=== PATIENT | female | born 1990 | race Caucasian/White ===

== ENCOUNTER → 2016-04-09 | Outpatient (CLI) | payer BC ==
[~2016-04-09] MED LIST: ANTIBIOTIC FOR ACNE; BCPILLS PO; LRT5 PO
== END | disposition home or self-care (01) ==
LOC: C.PAPS 09:18
PROVIDERS: ATTEND Obstetrics & Gynecology
DX: Z01.419 Encounter for gynecological examination (general) (routine) without abnormal findings (principal)

== ENCOUNTER 2016-09-08 19:26 | Emergency (ER) | payer OTHER, BC ==
[~2016-09-08] VITALS: Ht 170.2 cm; Wt 96.6 kg
[~2016-09-08 19:26] MED LIST changes: -BCPILLS PO
[2016-09-08 19:28] VITALS: TEMP 36.8; Ht 170.2 cm; Wt 96.6 kg
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
[2016-09-08] MEDS ORDERED: BCPILLS PO (20:17)
[2016-09-08] MEDS ORDERED: ACETAMINOPHEN 500 MG TAB PO STA (20:21)
[2016-09-08] MEDS ORDERED: IBUPROFEN 600 MG TAB PO STA (20:21)
[2016-09-08] MEDS ORDERED: NORCO 5/325MG HOME PACK PO ONE (20:30)
[2016-09-08 20:41] VITALS: BP 124/72; PULSE 72; O2SAT 98
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
== END 2016-09-08 20:42 | disposition home or self-care (01) ==
LOC: C.EDB 19:27 → C.EDD 20:42
DX: S69.91XA Unspecified injury of right wrist, hand and finger(s), initial encounter (principal); V89.2XXA Person injured in unspecified motor-vehicle accident, traffic, initial encounter; Y92.488 Other paved roadways as the place of occurrence of the external cause; Z79.3 Long term (current) use of hormonal contraceptives

== ENCOUNTER 2017-01-17 10:13 | Emergency (ER) | payer BC, OTHER ==
[~2017-01-17] VITALS: Ht 170.2 cm; Wt 97.6 kg
[~2017-01-17 10:13] MED LIST changes: -ANTIBIOTIC FOR ACNE; +BCPILLS PO; -LRT5 PO
[2017-01-17 10:25] VITALS: TEMP 36.9; Ht 170.2 cm; Wt 97.6 kg
[2017-01-17] MEDS ORDERED: PROPARACAINE HCL 0.5% OP SOLN 15 ML BTL ONE (10:37)
[2017-01-17] MEDS ORDERED: HYDR-5688 PO (10:53)
[2017-01-17] MEDS ORDERED: MOXIFLOXACIN HCL 0.5% OP SOLN 3 ML BTL OPR SCH (11:00)
[2017-01-17 11:38] VITALS: BP 117/85; PULSE 73; O2SAT 97
--- NOTE | 2017-01-17 16:48 | EMERGENCY ROOM VISIT NOTE ---
ED Visit Note First contact with patient: 10:32 CHIEF COMPLAINT: Right eye pain HISTORY OF PRESENT ILLNESS: This 26-year-old white female patient presents to ER with her , for evaluation of right eye pain that developed Wednesday. She states she removed her contacts and accidentally scratched her right eye. She has had corneal abrasions before and states it felt similar at that point. She did not seek medical treatment. She was using an eyedrop for pain control. She was wearing her glasses. The eye was doing well until yesterday. Her pain began increasing. This morning she awoke with severe pain, purulent discharge, and difficulty seeing. She is photosensitive. No involvement of the other eye. There is a blurring of vision. No headache, nausea, or vomiting. Pain is 9/10. REVIEW OF SYSTEMS: Head: No headache, injury or neck pain. Neck: No pain, stiffness, or swelling. Neurological: No headache, new changes in mental status, vertigo, focal weakness, numbness. PMH: Supplemental sheet was reviewed and signed. Previous surgeries: [place] tooth extraction Medical history: Benign Current medications: None Allergies: NKDA SOCIAL HISTORY: Patient lives at home. . No tobacco use, occasional EtOH use. Family history: Significant for diabetes, heart disease, hypertension, and cancer. Parents are living. PHYSICAL EXAM: Vital Signs: Afebrile. Reviewed and filed in patient's chart. GENERAL: Well-developed, well-nourished, young white female, in obvious discomfort. No acute distress. She is sitting on the bed. Alert and oriented. Skin: Warm and dry with good turgor. No rashes or lesions. No ecchymosis or erythema. The patient is not diaphoretic. No abrasions. No evidence of periorbital cellulitis. Mild edema of the right upper and lower eyelid. HEENT : Normocephalic, atraumatic. The pupils are round, equal, and react to light. EOMs are full. There is discharge of clear tears and purulent mucus from the right eye which is also injected. This was removed with a swab. Slit lamp examination was performed after Alcaine anesthesia and staining with fluorescein. There is no foreign body visible under the eyelid after lid eversion. No foreign body was seen embedded in the cornea. Corneal ulceration is seen directly over the pupil. It is approximately 3-4 mm in diameter. There is a thick mucous coating present over the ulceration. I cannot remove it with a Dacron swab. The cornea was clear and no hyphema was seen. Anterior chamber is without sediment. Fluorescein uptake was observed at central portion of the cornea in line with the pupil. DIAGNOSIS: Right eye corneal ulceration DISCHARGE INSTRUCTIONS AND TREATMENT: Patient was educated regarding today's findings. Conservative care measures were discussed. I did speak with Dr. Vega regarding this patient. He would like to see her in the office tomorrow. He recommended one drop of Vigamox in the eye every hour while awake , and every 2 hours overnight. Tylenol and Motrin every 6 hours as needed for mild discomfort. Take [place] every 6 hours if needed for more severe pain. Driving precautions were reviewed. Sunglasses and dark rooms will improve comfort. She may continue using warm moist compresses to the eye to remove the purulent discharge. Current/Historical Medications Scheduled Control Pills ( Control Pills), 1 TAB PO DAILY Scheduled PRN Hydrocodone/Acetaminophen 5MG/325MG ([place] 5MG/325MG), 1 TABLET PO Q6 PRN for Pain Allergies Coded Allergies: No Known Allergies (Unverified , 01/17/17) Vital Signs Date Time Temp Pulse Resp B/P (MAP) Pulse Ox O2 Delivery O2 Flow Rate FiO2 01/17/17 11:38 73 16 117/85 97 01/17/17 10:25 36.9 82 18 134/85 97 Room Air Medications Administered Medications (Trade) Dose Ordered Sig/Albin Route Start Time Stop Time Status Last Admin Dose Admin Moxifloxacin HCl (Vigamox Oph Soln) 1 drops Q1H OPR 01/17/17 11:00 01/17/17 12:08 DC 01/17/17 11:38 1 DROPS Departure Information Impression Primary Impression: Central corneal ulcer, right eye Dispostion Home / Self-Care Condition GOOD Prescriptions Hydrocodone/Acetaminophen 5MG/325MG ([place] 5MG/325MG) Tab 1 TABLET PO Q6 Y for Pain, #12 TAB For Initial Treatment Prov: Zuhair Delgado,P.A. 01/17/17 Referrals Sha Garsia M.D. Forms WORK / SCHOOL INSTRUCTIONS, HOME CARE DOCUMENTATION FORM, SPECIAL NARCOTICS INSTRUCTIONS, MOTRIN USE, TYLENOL USE, IMPORTANT VISIT INFORMATION Patient Instructions My [facility] Additional Instructions Apply Vigamox 1 drop in the eye every hour while awake, and every [address] Vega tomorrow morning for follow-up tomorrow Sunglasses and dark rooms will improve your comfort Tylenol and Motrin every 6 hours as needed for mild pain Substitute [place] 5 mg every 6 hours as needed for more severe pain Do not wear any contact lenses
== END 2017-01-17 11:40 | disposition home or self-care (01) ==
LOC: C.EDB 10:15 → C.EDA 11:40
DX: S05.01XA Injury of conjunctiva and corneal abrasion without foreign body, right eye, initial encounter (principal); H16.011 Central corneal ulcer, right eye; X58.XXXA Exposure to other specified factors, initial encounter

== ENCOUNTER 2018-12-15 09:57 | Inpatient (IN) ==
[2018-12-15] MEDS ORDERED: OXYTOCIN 30 UNITS/500 ML BAG IV PRN ×2 (10:44→13:55)
--- NOTE | 2018-12-15 11:05 | History & Physical Report ---
Date of Service December 15, 2018 Assessment & Plan (1) : In review of patient's blood pressures, given severity of BP and comorbid headache, patient meets criteria for gHTN. I am also concerned about preeclampsia, and have ordered labs to rule this in/out. Will plan to check cervix, if cervical ripening is needed, will insert arambula bulb with pitocin. Patient is agreeable to this plan. History of Present Illness Chief Complaint: headache, elevated BP Primary Care Provider: NO PCP 28yo @ 38 0/7 presents as directed from office with elevated blood pressures and headache. She has had a headache and "sprinkles" in her vision for the past 2 days and increased nasal/sinus stuffiness. She has not taken any medications to help this yet. + movement, no vaginal bleeding or leaking of fluid. is complicated by elevated BMI. Allergies Allergy/AdvReac Type Severity Reaction Status Date / Time No Known Drug Allergies Allergy Verified 12/15/18 09:20 Home Medications Home Medications Medication Instructions Recorded Confirmed Type PNV cmb#95-ferrous fumarate-FA 1 tab PO DAILY 06/06/18 12/15/18 History [] Patient History Social History Preferred Language: Luxembourgish Communication Ability: Effective Beliefs That Will Affect Care: None marital status: Current Living Situation: Spouse current occupational status: employed Other Information That Helps Us Care for You: No Feels Safe at Home: Yes Safety Concerns: Feels Safe At This Time Smoking Status: Never smoker Hx Alcohol Use: No Hx Substance Use: No Review of Systems All systems reviewed & are unremarkable except as noted in HPI & below Physical Exam Constitutional: WD/WN, vitals as above Respiratory: normal respiratory effort, lungs clear to auscultation no respiratory distress Cardiovascular: Rate/Rhythm: regular rate and regular rhythm Gastrointestinal (Abdomen): Inspection/Auscultation: abdomen normal to inspection Percussion/Palpation: abdomen soft; abdomen nontender Gravid. No s/s chorio or abruption. Skin: no rashes, warm and dry Psychiatric: A+Ox3, euthymic affect Results & Data Vital Signs (Past 12 Hours) Vital Signs Temp Pulse Resp BP 12/15/18 10:53 91 H 133/80 12/15/18 10:52 94 H 137/84 12/15/18 10:37 103 H 184/88 H 12/15/18 10:23 36.8 C 95 H 20 172/80 H 12/15/18 10:22 95 H 172/80 H 12/15/18 10:03 36.8 C 84 20 134/86 Monitoring External Monitor Cat 1 Tocodynamometer Rare
[2018-12-15 11:12] LABS: Hematocrit (blood only) 33.8 % (37-47); Hemoglobin 10.5 g/dL (12.0-16.0); Mean Corpuscular Hemoglobin 24.8 pg (25-34); Mean Corpuscular Volume 79.7 fL (80-100); Platelet Count 258 K/uL (130-400); RDW Coefficient of Variation 14.4 % (11.5-14.5); RDW Standard Deviation 41.9 fL (36.4-46.3); Red Blood Count 4.24 M/uL (4.2-5.4); White Blood Count 7.28 K/uL (4.8-10.8)
[2018-12-15 11:25] LABS: Albumin Level 2.4 gm/dl (3.4-5.0); BUN Creatinine Ratio 12.9 (10-20); Calcium 9.2 mg/dl (8.5-10.1); Creatinine Clr Calc Pharmacy 159.5 ml/min; Est GFR (African American) 132.1; Potassium 3.9 mmol/L (3.5-5.1)
[2018-12-15 11:28] LABS: Albumin Globulin Ratio 0.6 (0.9-2); Bilirubin,Total 0.1 mg/dl (0.2-1); Total Protein 6.4 gm/dl (6.4-8.2)
[2018-12-15 11:53] LABS: Mean Corpuscular Hgb Conc 31.1 g/dL (32-36)
--- NOTE | 2018-12-15 11:58 | Obstetrical Progress Note ---
Date of Service December 15, 2018 Subjective Cervix closed/thick/high. Fernandez bulb inserted for cervical ripening. There was a gush of blood upon insertion approx 50cc. FHT cat 1 following insertion. Will continue to monitor bleeding/FHT closely. The bleeding did stop after the initial gush. Will plan to start pitocin as long as FHT/bleeding stable. Results & Data Vital Signs (Past 12 Hours) Vital Signs Temp Pulse Resp BP 12/15/18 11:21 90 125/71 12/15/18 11:07 89 128/70 12/15/18 10:53 91 H 133/80 12/15/18 10:52 94 H 137/84 12/15/18 10:37 103 H 184/88 H 12/15/18 10:23 36.8 C 95 H 20 172/80 H 12/15/18 10:22 95 H 172/80 H 12/15/18 10:03 36.8 C 84 20 134/86 PG Care Time/CCT Total # of Minutes Spent Total Time Spent with Patient: Total time spent is greater than 50% in coordination of care (as documented) at patient's floor/unit and/or counseling p atient:
[2018-12-15] MEDS: LACTATED RINGER'S 1,000 ML IV PRN ×3 (12:02→19:49)
--- NOTE | 2018-12-15 13:54 | Obstetrical Progress Note ---
Date of Service December 15, 2018 Subjective FHT Cat 1, [place] rare No further bleeding from vagina. A small amount of blood through arambula catheter. I discussed with patient - will start pitocin, monitor closely. Results & Data Vital Signs (Past 12 Hours) Vital Signs Temp Pulse Resp BP 12/15/18 12:07 70 20 138/74 12/15/18 11:21 90 125/71 12/15/18 11:07 89 128/70 12/15/18 10:53 91 H 133/80 12/15/18 10:52 94 H 137/84 12/15/18 10:37 103 H 184/88 H 12/15/18 10:23 36.8 C 95 H 20 172/80 H 12/15/18 10:22 95 H 172/80 H 12/15/18 10:03 36.8 C 84 20 134/86 PG Care Time/CCT Total # of Minutes Spent Total Time Spent with Patient: Total time spent is greater than 50% in coordination of care (as documented) at patient's floor/unit and/or counseling patient:
[2018-12-15] MEDS ORDERED: fentaNYL citrate 100 MCG/2 ML VIAL ONE (17:50)
[2018-12-15] MEDS ORDERED: ePHEDrine sulfate 50 MG/ML AMP ONE (17:50)
[2018-12-15] MEDS ORDERED: BUPIVACAINE 0.25% 30 ML VIAL ONE (17:51)
[2018-12-15] MEDS ORDERED: fentaNYL 2MCG/ML ROPIV 1.25MG/ML 100 ML BAG EPI ONE (17:51)
--- NOTE | 2018-12-15 18:41 | Anesthesiology Consultation ---
Date of Service December 15, 2018 Assessment & Plan (1) Encounter for pre-operative examination: Chart Review Chart Review: Patient NOT seen in Pre Admission Testing and Acceptable Risk for Labor Epidural Consults Requested none ASA ASA2 Proposed Anesthesia Anesthesia Type: Labor Epidural Risk / Benefits Reviewed With: PT / POA / Parent / Guardian, Accepts Plan and Informed Consent Obtained History Height/Weight Height: 5 ft 7 in Weight: 124.738 kg Allergies Allergy/AdvReac Type Severity Reaction Status Date / Time No Known Drug Allergies Allergy Verified 12/15/18 09:20 Medications Home Medications Medication Instructions Recorded Confirmed Last Taken PNV cmb#95-ferrous fumarate-FA 1 tab PO DAILY 06/06/18 12/15/18 12/15/18 08:30 [] Active Medications Generic Name Dose Route Start Last Admin Trade Name Freq PRN Reason Stop Dose Admin Lactated Ringer's 1,000 mls @ 125 mls/hr 12/15/18 10:44 12/15/18 18:40 Lr IV 12/17/18 10:43 125 mls/hr .Q8H PRN Infusion L&D Protocol Protocol Oxytocin 30 units in 500 mls @ 7 mls/hr 12/15/18 13:55 12/15/18 18:12 Pitocin IV 12/17/18 13:54 0.42 units/hr .Q24H PRN 7 mls/hr Labor Induction/Augmentation Titration Protocol 0.42 UNITS/HR NPO Date Last Intake of Fluids: 12/15/18 Time Last Intake of Fluids: 17:30 Date Last Intake of Solids: 12/15/18 Time Last Intake of Solids: 09:00 Past Medical History Medical History History of joint pain History of varicella No significant past medical history Skin tag Exercise / Class Metabolic Activity II 4-5 Yardwork/Stairs/Walk up hill Past Family History Family History Father Diabetes Grandmother (Paternal) Diabetes Grandfather (Maternal) Hypertension Grandmother (Maternal) Hypertension Past Surgical History Surgical History No significant past surgical history S/P wisdom tooth extraction Past Anesthesia History No Hx of Anesthesia Complications and No Family Hx of Anesthesia Complications History of PONV No Hx of PONV and No Hx of Motion Sickness Social History Smoking Status: Never smoker Hx Alcohol Use: No Hx Substance Use: No Physical Exam Vital Signs Last Vital Signs Temp 36.8 C 12/15/18 18:16 Pulse 78 12/15/18 18:39 Resp 20 12/15/18 18:16 BP 112/58 L 12/15/18 18:39 Pulse Ox 100 12/15/18 18:35 ENMT Mouth: no dentition abnormality Thyromental Distance: > or= 3.5 Finger Breadths Mallampati Class: II Neck normal visual inspection Respiratory normal respiratory effort Auscultation: lungs clear to auscultation bilaterally Cardiovascular Rate/Rhythm: regular rate and regular rhythm Psychiatric Orientation: alert Testing Laboratory Results 12/15/18 10:53 12/15/18 10:52
[2018-12-15] MEDS ORDERED: NALOXONE HCL 0.4 MG/1 ML VIAL/CARP IV PRN (19:09)
[2018-12-15] MEDS ORDERED: DiphenhydrAMINE HCL 50 MG/ML VIAL IV PRN (19:09)
[2018-12-15] MEDS ORDERED: PROMETHAZINE HCL 6.25 MG in SODIUM CHLORIDE 0.9% 50 ML IV PRN (19:09)
[2018-12-15] MEDS ORDERED: ePHEDrine sulfate 50 MG/ML AMP IV PRN (19:09)
[2018-12-15] MEDS ORDERED: NALBUPHINE HCL INJ 10 MG/ML AMP IV PRN (19:09)
[2018-12-15] MEDS ORDERED: NALOXONE HCL 1 MG in SODIUM CHLORIDE 0.9% 1000ML 1,000 ML IV PRN (19:09)
--- NOTE | 2018-12-15 20:14 | Obstetrical Progress Note ---
Date of Service December 15, 2018 Subjective Comfortable with epidural. FHT Cat 1, [place] Q 2 Arambula bulb pulled, cervix 5/80/-2 AROM performed, clear fluid. There was a small dark clot of blood, presumably from the previous bleeding at the time of insertion of arambula bulb. No further bleeding. Results & Data Vital Signs (Past 12 Hours) Vital Signs Temp Pulse Resp BP Pulse Ox 12/15/18 20:10 89 100 12/15/18 20:05 95 H 100 12/15/18 20:02 88 112/58 L 12/15/18 20:00 79 99 12/15/18 19:55 79 99 12/15/18 19:50 80 99 12/15/18 19:46 85 109/59 L 12/15/18 19:45 73 99 12/15/18 19:40 79 100 12/15/18 19:35 82 100 12/15/18 19:31 71 115/65 12/15/18 19:30 36.6 C 72 20 100 12/15/18 19:25 86 100 12/15/18 19:20 77 100 12/15/18 19:17 79 110/55 L 12/15/18 19:15 78 100 12/15/18 19:10 78 100 12/15/18 19:05 71 100 12/15/18 19:02 71 108/51 L 12/15/18 19:00 91 H 100 12/15/18 18:55 75 100 12/15/18 18:50 84 100 12/15/18 18:45 70 113/60 100 12/15/18 18:43 62 113/55 L 12/15/18 18:41 69 113/56 L 12/15/18 18:40 76 100 12/15/18 18:39 78 112/58 L 12/15/18 18:37 73 108/58 L 12/15/18 18:35 72 134/60 100 12/15/18 18:32 78 135/64 12/15/18 18:30 72 100 12/15/18 18:27 75 148/70 H 12/15/18 18:25 78 95 12/15/18 18:16 36.8 C 20 12/15/18 17:25 78 149/86 H 12/15/18 17:22 36.5 C 22 12/15/18 16:27 65 20 135/79 12/15/18 15:16 77 135/66 12/15/18 15:00 36.6 C 65 20 122/73 12/15/18 14:45 80 16 128/76 12/15/18 14:30 75 126/73 12/15/18 14:15 65 124/61 12/15/18 14:06 69 124/61 12/15/18 12:07 70 20 138/74 12/15/18 11:21 90 125/71 12/15/18 11:07 89 128/70 12/15/18 10:53 91 H 133/80 12/15/18 10:52 94 H 137/84 12/15/18 10:37 103 H 184/88 H 12/15/18 10:23 36.8 C 95 H 20 172/80 H 12/15/18 10:22 95 H 172/80 H 12/15/18 10:03 36.8 C 84 20 134/86 PG Care Time/CCT Total # of Minutes Spent Total Time Spent with Patient: Total time spent is greater than 50% in coordination of care (as documented) at patient's floor/unit and/or counseling patient:
[2018-12-15] MEDS: ONDANSETRON INJ 2 MG/ML 2 ML VIAL IV PRN (20:15)
[2018-12-16] MEDS: fentaNYL 2MCG/ML ROPIV 1.25MG/ML 100 ML BAG EPI PRN ×2 (01:32→06:04)
[2018-12-16] MEDS: LACTATED RINGER'S 1,000 ML IV PRN (03:58)
[2018-12-16] MEDS: ONDANSETRON INJ 2 MG/ML 2 ML VIAL IV PRN (03:58)
--- NOTE | 2018-12-16 06:23 | Obstetrical Progress Note ---
Date of Service December 16, 2018 Subjective Increased pressure. Cervix with very tiny anterior lip, thin. Patient feels urge to push. head +1 station. I asked her to push while I retracted anterior lip of cervix, this allowed it to push behind head. Will plan to continue pushing. Anticipate . Results & Data Vital Signs (Past 12 Hours) Vital Signs Temp Pulse Resp BP Pulse Ox 12/16/18 06:21 107 H 99 12/16/18 06:17 75 132/73 12/16/18 06:16 81 98 12/16/18 06:11 88 99 12/16/18 06:06 89 100 12/16/18 06:03 61 122/59 L 12/16/18 06:01 91 H 100 12/16/18 06:00 36.9 C 20 12/16/18 05:56 75 99 12/16/18 05:51 99 H 98 12/16/18 05:47 76 120/58 L 12/16/18 05:46 75 100 12/16/18 05:41 66 97 12/16/18 05:36 83 100 12/16/18 05:31 93 H 120/65 97 12/16/18 05:26 66 97 12/16/18 05:20 92 H 98 12/16/18 05:19 98 H 90 12/16/18 05:17 72 112/62 12/16/18 05:15 93 H 100 12/16/18 05:10 71 98 12/16/18 05:05 99 H 99 12/16/18 05:01 76 120/58 L 12/16/18 05:00 94 H 98 12/16/18 04:55 73 100 12/16/18 04:50 77 100 12/16/18 04:46 93 H 122/74 12/16/18 04:45 87 100 12/16/18 04:40 78 100 12/16/18 04:35 71 98 12/16/18 04:32 68 116/65 12/16/18 04:30 68 99 12/16/18 04:25 70 99 12/16/18 04:20 66 100 12/16/18 04:17 58 L 131/60 12/16/18 04:15 63 98 12/16/18 04:10 73 98 12/16/18 04:08 94 H 90 12/16/18 04:05 90 99 12/16/18 04:02 77 108/66 12/16/18 04:00 83 18 100 12/16/18 03:55 80 100 12/16/18 03:50 95 H 99 12/16/18 03:48 122 H 121/85 12/16/18 03:45 74 100 12/16/18 03:40 69 98 12/16/18 03:35 67 99 12/16/18 03:31 71 120/68 12/16/18 03:30 36.7 C 64 20 98 12/16/18 03:25 66 97 12/16/18 03:20 66 98 12/16/18 03:16 67 121/66 12/16/18 03:15 67 100 12/16/18 03:10 66 98 12/16/18 03:05 69 98 12/16/18 03:02 64 127/71 12/16/18 03:00 67 98 12/16/18 02:55 76 99 12/16/18 02:50 72 99 12/16/18 02:46 68 124/68 12/16/18 02:45 73 98 12/16/18 02:40 72 99 12/16/18 02:35 67 98 12/16/18 02:32 72 123/67 12/16/18 02:30 72 99 12/16/18 02:25 74 99 12/16/18 02:20 79 99 12/16/18 02:17 78 118/56 L 12/16/18 02:15 72 99 12/16/18 02:10 77 100 12/16/18 02:05 92 H 100 12/16/18 02:02 78 114/58 L 12/16/18 02:00 72 18 99 12/16/18 01:55 69 98 12/16/18 01:50 83 99 12/16/18 01:47 66 108/55 L 12/16/18 01:45 75 98 12/16/18 01:40 73 100 12/16/18 01:35 80 100 12/16/18 01:32 73 117/60 12/16/18 01:30 36.4 C L 76 18 100 12/16/18 01:25 80 100 12/16/18 01:20 73 100 12/16/18 01:17 77 106/65 12/16/18 01:15 72 100 12/16/18 01:10 83 99 12/16/18 01:05 77 100 12/16/18 01:01 70 109/59 L 12/16/18 01:00 74 20 99 12/16/18 00:55 83 99 12/16/18 00:50 84 100 12/16/18 00:48 71 118/72 12/16/18 00:45 75 99 12/16/18 00:40 72 98 12/16/18 00:35 94 H 98 12/16/18 00:32 78 125/59 L 12/16/18 00:30 36.7 C 71 18 98 12/16/18 00:25 71 99 12/16/18 00:20 70 98 12/16/18 00:17 77 115/59 L 12/16/18 00:15 89 98 12/16/18 00:10 67 98 12/16/18 00:05 67 98 12/16/18 00:01 71 119/61 12/16/18 00:00 71 98 12/15/18 23:55 73 97 12/15/18 23:50 67 97 12/15/18 23:46 70 116/59 L 12/15/18 23:45 66 97 12/15/18 23:40 67 97 12/15/18 23:35 69 97 12/15/18 23:33 67 113/58 L 12/15/18 23:30 67 18 97 12/15/18 23:25 62 97 12/15/18 23:20 63 97 12/15/18 23:17 64 119/63 12/15/18 23:15 67 98 12/15/18 23:10 67 98 12/15/18 23:05 67 99 12/15/18 23:01 76 131/61 12/15/18 23:00 71 18 98 12/15/18 22:55 77 98 12/15/18 22:50 70 99 12/15/18 22:47 73 132/61 12/15/18 22:45 74 98 12/15/18 22:40 74 99 12/15/18 22:35 71 100 12/15/18 22:30 36.4 C L 79 20 100 12/15/18 22:25 76 99 12/15/18 22:20 68 98 12/15/18 22:17 72 108/56 L 12/15/18 22:15 72 97 12/15/18 22:10 67 98 12/15/18 22:05 71 98 12/15/18 22:02 65 111/57 L 12/15/18 22:00 70 97 12/15/18 21:55 70 99 12/15/18 21:50 72 99 12/15/18 21:47 65 111/55 L 12/15/18 21:45 84 99 12/15/18 21:40 63 99 12/15/18 21:35 61 98 12/15/18 21:31 70 109/55 L 12/15/18 21:30 73 99 12/15/18 21:25 74 98 12/15/18 21:20 66 98 12/15/18 21:16 71 113/58 L 12/15/18 21:15 72 99 12/15/18 21:10 77 98 12/15/18 21:05 78 98 12/15/18 21:03 75 113/60 12/15/18 21:00 78 18 100 12/15/18 20:55 79 99 12/15/18 20:50 90 99 12/15/18 20:48 72 113/59 L 12/15/18 20:45 71 98 12/15/18 20:40 80 99 12/15/18 20:35 76 99 12/15/18 20:33 83 110/56 L 12/15/18 20:30 81 98 12/15/18 20:25 80 99 12/15/18 20:20 113 H 99 12/15/18 20:16 97 H 118/65 12/15/18 20:15 36.7 C 83 20 100 12/15/18 20:10 89 100 12/15/18 20:05 95 H 100 12/15/18 20:02 88 112/58 L 12/15/18 20:00 79 99 12/15/18 19:55 79 99 12/15/18 19:50 80 99 12/15/18 19:46 85 109/59 L 12/15/18 19:45 73 99 12/15/18 19:40 79 100 12/15/18 19:35 82 100 12/15/18 19:31 71 115/65 12/15/18 19:30 36.6 C 72 20 100 12/15/18 19:25 86 100 12/15/18 19:20 77 100 12/15/18 19:17 79 110/55 L 12/15/18 19:15 78 100 12/15/18 19:10 78 100 12/15/18 19:05 71 100 12/15/18 19:02 71 108/51 L 12/15/18 19:00 91 H 100 12/15/18 18:55 75 100 12/15/18 18:50 84 100 12/15/18 18:45 70 113/60 100 12/15/18 18:43 62 113/55 L 12/15/18 18:41 69 113/56 L 12/15/18 18:40 76 100 12/15/18 18:39 78 112/58 L 12/15/18 18:37 73 108/58 L 12/15/18 18:35 72 134/60 100 12/15/18 18:32 78 135/64 12/15/18 18:30 72 100 12/15/18 18:27 75 148/70 H 12/15/18 18:25 78 95 PG Care Time/CCT Total # of Minutes Spent Total Time Spent with Patient: Total time spent is greater than 50% in coordination of care (as documented) at patient's floor/unit and/or counseling patient:
[2018-12-16] MEDS ORDERED: ZOLPIDEM TARTRATE 5 MG TAB PO PRN (07:22)
[2018-12-16] MEDS ORDERED: SUPERCREAM 0.870% 15 GM JAR EXT PRN (07:23)
[2018-12-16] MEDS ORDERED: BISACODYL 10 MG SUPP PR PRN (07:23)
[2018-12-16] MEDS ORDERED: OXYCODONE/ACETAMINOPHEN 5mg/325mg TAB PO PRN (07:23)
[2018-12-16] MEDS ORDERED: BENZOCAINE 20% AER SPR 82.5 GM CAN EXT PRN (07:23)
[2018-12-16] MEDS ORDERED: OXYTOCIN 30 UNITS/500 ML BAG IV PRN (07:23)
[2018-12-16] MEDS ORDERED: HYDROCORTISONE ACETATE 25 MG SUPP PR PRN (07:23)
[2018-12-16] MEDS ORDERED: DIPHTHERIA/TETANUS/PERTUSSIS 0.5 ML SYR/VIAL IM ONE (07:23)
--- NOTE | 2018-12-16 07:25 | Delivery Summary ---
Vaginal Delivery Summary Date of Service December 16, 2018 Vaginal Delivery Summary Vaginal Delivery Summary: Pre-delivery diagnoses: 28yo @ 38 1/7, gHTN, IOL Post-delivery diagnoses: same, mild shoulder dystocia, 2nd degree perineal laceration Procedure: spontaneous vaginal delivery with shoulder dystocia relieved by McRobert's Maneuver and delivery of anterior arm Surgeon: Virginia Laureano DO Complications: none Findings: Viable male . Apgars: 3/8. Weight pending, please see nursery records Estimated blood loss: 300ml Description of delivery: The patient progressed to complete with epidural anesthesia. She then began to push. She spontaneously vaginally delivered a viable male from the cephalic presentation. The head delivered in JOSEPH position. There was approx 45 seconds between head and body delivery. The mother's legs were placed in McRobert's position, and with one push, the baby's anterior shoulder delivered. The posterior shoulder did not deliver immediately, the anterior arm was partially out already, and therefore was delivered in its entirety. The posterior shoulder then delivered spontaneously. There was a tight nuchal cord, this was unable to be reduced, and the baby was delivered through. The baby was placed on mother's abdomen and the cord was doubly clamped and cut. The baby was immediately handed over to pediatrics team for resuscitation. A segment was retained for cord gases. Cord blood was obtain ed. The placenta was delivered spontaneously intact with a 3-vessel cord. The uterus and vagina were swept of clots and debris. IV pitocin was given. The uterus became firm. The cervix, vagina, and perineum were inspected and a 2nd degree perineal laceration was noted, repaired in standard fashion with 3-0 Vicryl. Excellent hemostasis was observed. The mother and baby are recovering in stable and good condition in the room. Sponge, needle and instrument counts were correct x 2. Virginia Laureano DO FACG
[2018-12-16 07:27] LABS: CO2 Cord Arterial Blood 64 mmHg (39.1-73.5); HCO3 Cord Arterial Blood 25 mmol/L (19.7-28.5)
[2018-12-16 07:29] LABS: Oxygen Sat Cord Arterial Blood < 60.0 % (<60)
[2018-12-16] MEDS ORDERED: LACTATED RINGER'S 1,000 ML IV SCH (07:30)
[2018-12-16 07:34] LABS: Base Excess Cord Venous Blood -4.7 mEq/L (-7.7-1.9); Cord Venous Blood HCO3 21 mmol/L (18.4-26.8); Cord Venous Blood PCO2 41 mmHg (30.4-57.2); Cord Venous Blood PO2 28 mmHg (14.1-43.3)
[2018-12-16 07:35] LABS: Cord Venous Blood pH 7.32 (7.20-7.44)
--- NOTE | 2018-12-16 07:50 | Anesthesia Procedure Note ---
Date of Service December 16, 2018 Anesthesia Post Epidural Note Vital Signs Vital Signs: Temp Pulse Resp BP Pulse Ox 36.9 C 71 20 118/61 89 L 12/16/18 06:00 12/16/18 07:37 12/16/18 07:37 12/16/18 07:37 12/16/18 07:02 Pain Intensity Lower Abdomen: Pain Intensity: 0 Notes Mental Status: alert / awake / arousable and participated in evaluation Patient Amnestic to Procedure: No Nausea / Vomiting: adequately controlled Pain: adequately controlled Airway Patency, RR, SpO2: stable & adequate BP & HR: stable & adequate Hydration State: stable & adequate Neuraxial Anesthesia: was administered and sensory block is resolving Anesthetic Complications: no major complications apparent and Pt Satisfied with anesthetic care Epidural: Removed without complications and With tip intact
[2018-12-16] MEDS: ACETAMINOPHEN 325 MG TAB PO PRN ×3 (10:33→23:14)
[2018-12-16] MEDS: PRENATAL VITAMIN 1 TAB PO SCH (10:33)
[2018-12-16] MEDS: DOCUSATE SODIUM 100 MG CAP PO SCH ×2 (10:33→20:43)
[2018-12-16] MEDS: IBUPROFEN 600 MG TAB PO PRN (15:07)
[2018-12-17] MEDS: IBUPROFEN 600 MG TAB PO PRN (03:57)
--- NOTE | 2018-12-17 06:21 | Obstetrical Progress Note ---
Date of Service <Lloyd Martínez DO - Last Filed: 12/17/18 06:21> December 17, 2018 Assessment & Plan <Lloyd Martínez DO - Last Filed: 12/17/18 06:21> (1) : -PPD#1 -Vitals reviewed, WNL (Tmax 36.7) - GBS -, Blood Type O+ - Clinically stable. - Feels well today. Eating well, voiding well, ambulating well. - Pain well controlled. - Routine post- care - After discharge will have [address] Laureano. Day #:: 1 Subjective <Lloyd CovingtonnDO - Last Filed: 12/17/18 06:21> Ambulation: ambulating normally Voiding: no voiding problems Passing Gas:: Yes Diet Tolerance:: regular diet Lochia:: Small Feeding Type:: breast feeding Current Pain Level(1-10): 3 (improves with analgesics) Patient is a 28 PPD#1. Patient states that she is feeling well today and that her pain is well controlled. She does note some nipple discomfort with feedings. She has no other complaints at this time. Constitutional: no fever and no chills Respiratory: no cough, no dyspnea and no wheezing Cardiovascular: + edema; no chest pain, no dyspnea, no palpitations and no calf pain Breast: + breast pain (nipple discomfort with feedings) Gastrointestinal: no abdominal pain, no nausea and no vomiting Genitourinary (female): no dysuria and no difficulty urinating Neurologic: no headache(s) Physical Exam <Lloyd Covingtonfarzad DO [place] Last Filed: 12/17/18 06:21> Constitutional WD/WN, vitals as above Respiratory normal respiratory effort, lungs clear to auscultation Cardiovascular Rate/Rhythm: regular rate and regular rhythm Heart Sounds: normal S1 and normal S2; no click, no gallop, no murmur and no cardiac rub Extremities: + edema (+2); no calf tenderness Gastrointestinal (Abdomen) Inspection/Auscultation: abdomen normal to inspection and normal bowel sounds Percussion/Palpation: + abdomen tender (TTP lower quadrants, appropriate) and abdomen soft Genitourinary OB Exam Abdomen: + fundal height Fundus: + firm and + relation to umbilicus (2cm below); not tender and not boggy Results & Data <Lloyd Martínez DO - Last Filed: 12/17/18 06:21> Vital Signs (Past 12 Hours) Vital Signs Temp Pulse Resp BP 12/17/18 03:25 36.7 C 85 18 114/79 12/16/18 23:15 36.6 C 85 18 111/75 12/16/18 19:35 36.5 C 77 18 103/67 Medications Administered Current Inpatient Medications Acetaminophen (Tylenol) 650 mg PO Q6H PRN PRN Reason: Pain/MUÑOZ/Fever Stop: 01/15/19 07:22 Last Admin: 12/16/18 23:14 Dose: 650 mg Documented by: Benzocaine (Dermoplast Pain Relieving [place]) 1 appln EXT PRN PRN PRN Reason: Perineal Discomfort Stop: 01/15/19 07:22 Bisacodyl (Dulcolax) 5 mg PO 1999 [facility] Stop: 12/17/18 20:01 Bisacodyl (Dulcolax) 10 mg WA DAILY PRN PRN Reason: No BM on 2nd post- day Stop: 01/15/19 07:22 Cocaine HCl (Supercream 0.870%) 1 gm EXT BID PRN PRN Reason: Hemorrhoidal Inflammation Stop: 12/30/18 07:22 Docusate Sodium (Colace) 100 mg PO DAILY@08, [facility] Stop: 01/15/19 07:59 Last Admin: 12/16/18 20:43 Dose: 100 mg Documented by: Hydrocortisone (Anusol Hc) 25 mg WA BID PRN PRN Reason: Hemorrhoidal Inflammation Stop: 01/15/19 07:22 Oxytocin (Pitocin) 30 units in 500 mls @ 333.333 mls/hr IV .Q1H30M PRN; Protocol PRN Reason: Bleeding Control Stop: 01/14/19 10:43 Last Admin: 12/16/18 07:24 Dose: 20 units/hr, 333.3 mls/hr Documented by: Lactated Ringer's (Lr) 1,000 mls @ 125 mls/hr IV .Q8H PRN; Protocol PRN Reason: L&D Protocol Stop: 12/17/18 10:43 Last Admin: 12/16/18 03:58 Dose: 125 mls/hr Documented by: Oxytocin (Pitocin) 30 units in 500 mls @ 10 mls/hr IV .Q24H PRN; Protocol PRN Reason: Labor Induction/Augmentation Stop: 12/17/18 13:54 Last Titration: 12/16/18 04:45 Dose: 0.6 units/hr, 10 mls/hr Documented by: Oxytocin (Pitocin) 30 units in 500 mls @ 333.333 mls/hr IV .Q1H30M PRN; Protocol PRN Reason: Bleeding Control Stop: 01/15/19 07:22 Lactated Ringer's (Lr) 1,000 mls @ 125 mls/hr IV .Q8H OPAL Stop: 01/15/19 07:29 Ibuprofen (Motrin) 600 mg PO Q4H PRN PRN Reason: Pain/MUÑOZ/Cramping/Fever Stop: 01/15/19 07:20 Last Admin: 12/17/18 03:57 Dose: 600 mg Documented by: Oxycodone/Acetaminophen (Percocet 5mg/325mg) 1 tab PO Q4H PRN PRN Reason: Pain not relieved by... Stop: 12/30/18 07:22 Prenat Multivit/[place]/Iron/Folic Ac ( Vitamin) 1 tab PO DAILY@08 OPAL Stop: 01/15/19 07:59 Last Admin: 12/16/18 10:33 Dose: 1 tab Documented by: Zolpidem Tartrate (Ambien) 5 mg PO HS PRN PRN Reason: Sleep Stop: 01/15/19 07:21 <Laura Malloy MD, FACOG - Last Filed: 12/17/18 08:00> Co-Signing Physician Notes Resident Physician Supervision Note: I interviewed and examined the patient. Discussed with Dr. Martínez and agree with findings and plan as documented in the note. Any exceptions or clarifications are listed here: Doing well. Pressures are good. NO s/s of pet. Continued routine care. Documented By: Laura Malloy MD, FACOG Resident Activity Tracking <Lloyd Martínez DO - Last Filed: 12/17/18 06:21> Resident Involvement: Resident Care Provided Care Provided: OB Delivery
[2018-12-17 06:51] LABS: Hematocrit (blood only) 29.2 % (37-47); Hemoglobin 9.2 g/dL (12.0-16.0); Mean Corpuscular Hemoglobin 25.3 pg (25-34); Mean Corpuscular Hgb Conc 31.5 g/dL (32-36); Mean Corpuscular Volume 80.2 fL (80-100); Mean Platelet Volume 9.7 fL (7.4-10.4); Platelet Count 212 K/uL (130-400); RDW Coefficient of Variation 14.8 % (11.5-14.5); RDW Standard Deviation 43.4 fL (36.4-46.3); Red Blood Count 3.64 M/uL (4.2-5.4); White Blood Count 11.27 K/uL (4.8-10.8)
[2018-12-17] MEDS: DOCUSATE SODIUM 100 MG CAP PO SCH ×2 (08:39→20:52)
[2018-12-17] MEDS: ACETAMINOPHEN 325 MG TAB PO PRN ×3 (08:40→22:18)
[2018-12-17] MEDS: PRENATAL VITAMIN 1 TAB PO SCH (08:40)
[2018-12-17] MEDS ORDERED: BISACODYL 5 MG TABEC PO SCH (20:00)
[2018-12-18 01:13] VITALS: O2SAT 99
[2018-12-18 06:38] LABS: Hematocrit (blood only) 29.8 % (37-47); Hemoglobin 9.5 g/dL (12.0-16.0)
[2018-12-18] MEDS: DOCUSATE SODIUM 100 MG CAP PO SCH (07:34)
[2018-12-18] MEDS: PRENATAL VITAMIN 1 TAB PO SCH (07:34)
[2018-12-18 08:14] VITALS: BP 121/80; TEMP 97.7
--- NOTE | 2018-12-18 09:27 | Obstetrical Progress Note ---
Date of Service December 18, 2018 Assessment & Plan (1) care and examination: 28yo G1 s/p . DOing well. BP wnl. complicated by gHTN. - Stable for discharge. - 1 week BP check Subjective Ambulation: ambulating normally Voiding: no voiding problems Diet Tolerance:: regular diet Lochia:: Moderate Physical Exam Constitutional WD/WN, vitals as above Gastrointestinal (Abdomen) Inspection/Auscultation: abdomen normal to inspection; abdomen not distended Psychiatric A+Ox3, euthymic affect Genitourinary no vaginal lesions, no adnexal mass OB Exam Abdomen: + fundal height Fundus: + firm and + relation to umbilicus (below); not tender Results & Data Vital Signs (Past 12 Hours) Vital Signs Temp Pulse Pulse Resp BP Pulse Ox 12/18/18 07:40 36.5 C 82 16 121/80 12/17/18 23:55 36.7 C 81 18 109/68 99
[2018-12-18 10:01] VITALS: PULSE 81
== END 2018-12-18 10:51 | disposition home or self-care (01) | DRG 807 ==
LOC: OPB 09:57 → 4S1 10:00 → 4S2 12-16 12:05

== ENCOUNTER 2021-10-30 18:52 | Inpatient (IN) ==
[2021-10-30] MEDS ORDERED: OXYTOCIN 30 UNITS/500 ML BAG IV PRN ×2 (19:48)
[2021-10-30] MEDS ORDERED: LIDOCAINE 1% LOCAL 20 ML VIAL INFIL PRN (19:48)
[2021-10-30] MEDS: LACTATED RINGER'S 1,000 ML IV PRN ×2 (19:55→23:52)
--- NOTE | 2021-10-30 19:59 | Labor Progress Brief Note ---
Date of Service October 30, 2021 Subjective Patient arrives to L&D for Arambula Bulb placement. She c/o contractions that are irregular and she is unsure if they are labor contractions or painful movements because they aren't timeable. No LOF or VB, good FM. During placement ROM occurred for clear fluid. Patient to be admitted and will begin IOL now. 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 Assessment & Plan (1) Supervision of normal intrauterine in multigravida: Plan: Patient for induction of labor as scheduled, will begin pitocin now as rupture of membranes already. Epidural on request. GBS neg. Physical Exam Constitutional: WD/WN, vitals as above Eyes: PERRL, conjunctivae normal, anicteric sclerae ENMT: external ear and nose normal, oropharynx normal Neck: supple Respiratory: normal respiratory effort and able to speak in complete sentences; no respiratory distress Cardiovascular: Rate/Rhythm: regular rate and regular rhythm Extremities: + pedal edema Gastrointestinal (Abdomen): Gravid / AGA, nontender Musculoskeletal: no cyanosis or clubbing, extremities motor strength 5/5 Skin: no rashes, warm and dry Psychiatric: A+Ox3, euthymic affect Genitourinary: Speculum/Bimanual Exam: no vaginal lesions, no vaginal bleeding and uterus nontender OB Exam Abdomen: + vertex and + estimated weight (7-8lb) Manual OB Exam: + cervical dilation 1 cm, + cervical effacement 50%, + station -2 and + amniotic fluid (Clear fluid immediately upon introduction of arambula tip into cervix) clear OB Exam Monitor Tracing: + external FHT monitor used, + external uterine monitor used and + category I Scant clear fluid appeared in arambula as soon as the tip was introduced to the external os. Amount was small, few drips from the catheter, not flow. No "pop" appreciated and tip had not yet been advanced through the internal os. With further advancement of tip off of the stylet and into the uterine cavity, light pink tinge began to appear in fluid. Tested the fluid and was nitrazine positive so catheter removed from the uterus and patient informed of evident ROM. Lymphatic: no cervical or axillary lymphadenopathy Results & Data ([facility]) Vital Signs (Past 12 Hours) Vital Signs Temp Pulse Resp BP 10/30/21 19:04 99.3 F 18 10/30/21 19:31 87 10/30/21 19:31 135/63 10/30/21 19:00 83 144/67 H Coding Level of Care Code None Diagnoses Supervision of normal intrauterine in multigravida Z34.80
[2021-10-30 20:23] LABS: Hematocrit (blood only) 33.2 % (34.1-44.9); Hemoglobin 10.6 g/dl (12.0-16.0); Mean Corpuscular Hemoglobin 25.4 pg (25.0-34.0); Mean Corpuscular Hgb Conc 31.9 g/dL (32.0-36.0); Mean Corpuscular Volume 79.4 fL (80.0-100.0); Mean Platelet Volume 9.7 fL (9.4-12.3); Platelet Count 260 K/uL (130-400); RDW Coefficient of Variation 15.7 % (11.5-14.5); RDW Standard Deviation 44.9 fL (36.4-46.3); Red Blood Count 4.18 M/uL (3.93-5.22); White Blood Count 8.19 K/ul (4.8-10.8)
[2021-10-30] MEDS ORDERED: BUPIVACAINE 0.25% 30 ML VIAL ONE (23:20)
[2021-10-30] MEDS ORDERED: fentaNYL citrate 100 MCG/2 ML VIAL ONE (23:20)
[2021-10-30] MEDS ORDERED: SODIUM CHLORIDE 0.9% INJ 10 ML VIAL ONE (23:20)
[2021-10-30] MEDS ORDERED: ePHEDrine sulfate 50 MG/ML AMP ONE (23:20)
[2021-10-30] MEDS ORDERED: fentaNYL 2MCG/ML ROPIVACAINE 1.25MG/ML 100 ML BAG EPI ONE (23:21)
[2021-10-30] MEDS ORDERED: LIDOCAINE 2%/EPINEPHRINE 1:200,000 20 ML SDV ONE (23:21)
[2021-10-30] MEDS ORDERED: ePHEDrine sulfate 50 MG/ML AMP IV PRN (23:42)
[2021-10-30] MEDS ORDERED: NALOXONE HCL 0.4 MG/1 ML VIAL/CARP IV PRN (23:42)
[2021-10-30] MEDS ORDERED: NALBUPHINE HCL INJ 10 MG/ML AMP IV PRN (23:42)
[2021-10-30] MEDS ORDERED: NALOXONE HCL 1 MG in SODIUM CHLORIDE 0.9% 1000ML 1,000 ML IV PRN (23:42)
[2021-10-30] MEDS ORDERED: fentaNYL 2MCG/ML ROPIVACAINE 1.25MG/ML 100 ML BAG EPI PRN (23:42)
[2021-10-30] MEDS ORDERED: diphenhydrAMINE 50 MG/ML VIAL IV PRN (23:42)
--- NOTE | 2021-10-30 23:42 | Anesthesiology Consultation ---
Date of Service October 30, 2021 Assessment & Plan ASA ASA2 Proposed Anesthesia Anesthesia Type: Labor Epidural Risk / Benefits Reviewed With: PT / POA / Parent / Guardian, Accepts Plan and Informed Consent Obtained History Height/Weight Height: 5 ft 7 in Weight: 118.841 kg Allergies Allergy/AdvReac Type Severity Reaction Status Date / Time No Known Drug Allergies Allergy Mild None Verified 10/30/21 19:02 Medications Home Medications Medication Instructions Recorded Confirmed Last Taken vit no.95-ferrous 1 tab PO DAILY 10/30/21 10/30/21 10/30/21 fumarate 28 mg-folic acid 800 mcg tablet () Active Medications Generic Name Dose Route Start Last Admin Trade Name Freq PRN Reason Stop Dose Admin Oxytocin 30 units in 500 mls @ 9 mls/hr 10/30/21 19:48 10/30/21 23:00 Pitocin IV 11/01/21 19:47 0.54 units/hr .Q24H PRN 9 mls/hr Labor Induction/Augmentation Titration Protocol 0.54 UNITS/HR Lactated Ringer's 1,000 mls @ 125 mls/hr 10/30/21 19:48 10/30/21 23:52 Lr IV 11/01/21 19:47 125 mls/hr .Q8H PRN Administration L&D Protocol Protocol Past Medical History Medical History Contact dermatitis and eczema due to plant History of varicella Exercise / Class Metabolic Activity II 4-5 Yardwork/Stairs/Walk up hill Past Family History Family History Father Diabetes Grandmother (Paternal) Diabetes Grandfather (Maternal) Hypertension Grandmother (Maternal) Hypertension Breast cancer Aunt Breast cancer maternal Denies family history of Ovarian cancer Prostate cancer Colorectal cancer Past Surgical History Surgical History No significant past surgical history S/P wisdom tooth extraction Past Anesthesia History No Hx of Anesthesia Complications and No Family Hx of Anesthesia Complications History of PONV No Hx of PONV and No Hx of Motion Sickness Social History Smoking Status: Never smoker Hx Alcohol Use: No Hx Substance Use: No substance use type: does not use Review of Systems denies fever/cough/ colds/ chest pain/ SOB/ REGIS denies REGIS Physical Exam Vital Signs Last Vital Signs Temp 36.6 C 10/30/21 23:41 Pulse 71 10/31/21 00:14 Resp 16 10/31/21 00:10 BP 110/57 L 10/31/21 00:10 Pulse Ox 98 10/31/21 00:14 ENMT Mouth: no TMJ abnormality and no dentition abnormality Thyromental Distance: > or= 3.5 Finger Breadths Mallampati Class: II Neck neck extension not limited Respiratory normal respiratory effort; no respiratory distress Auscultation: lungs clear to auscultation bilaterally Cardiovascular Rate/Rhythm: regular rate and regular rhythm Neurologic moves all extremities Psychiatric Orientation: alert and oriented x 3 Testing Laboratory Results 10/30/21 20:14 Blood Type O Positive 10/30/21 20:14 Antibody Screen NEGATIVE 10/30/21 20:14
--- NOTE | 2021-10-31 05:36 | Delivery Summary ---
Vaginal Delivery Summary Date of Service October 31, 2021 Vaginal Delivery Summary DIAGNOSES: 1. Cheek intrauterine at 39w1d gestation. 2. Induction of Labor. 3. Group B Streptococcus Neg. PROCEDURE: Spontaneous vaginal delivery and repair of second degree laceration. SURGEON: Dolores Rasmussen MD. RESEARCH CHEMIST: None. ESTIMATED BLOOD LOSS: 250 mL. COMPLICATIONS: None. PLACENTA: Spontaneous and intact with a 3-vessel cord. DISPOSITION: Stable to labor and delivery. DESCRIPTION: The patient pushed well and brought the head to in OA position, then delivered the head with four active pushes. There was no nuchal cord. The right shoulder was anterior. We paused to place the patient in Emily position, and with the next push, the anterior shoulder delivered. On the following push, the posterior shoulder delivered, and then the body quickly followed without any difficulty. The was placed on the maternal abdomen. It was vigorous and moving all extremities, and making respiratory efforts. The cord was doubly clamped by the MD and then cut by the FOB. The placenta delivered spontaneously and was noted to be intact and with a 3VC. The cervix, vagina and perineum were examined and were found to have a small second degree laceration, which was too shallow to allow for a crown stitch, thus was repaired with 3-0 vicryl in running locked manner. The fundus was firm and lochia minimal immediately after delivery. [facility] Vaginal Delivery Charge Vaginal Delivery Codes: 89964 global code for the antepartum, delivery, and post-
[2021-10-31] MEDS ORDERED: DIPHTHERIA/TETANUS/PERTUSSIS 0.5 ML SYR/VIAL IM ONE (05:39)
[2021-10-31] MEDS ORDERED: HYDROCORTISONE ACETATE 25 MG SUPP PR PRN (05:39)
[2021-10-31] MEDS ORDERED: oxyCODONE/ACETAMINOPHEN 5mg/325mg TAB PO PRN (05:39)
[2021-10-31] MEDS ORDERED: BENZOCAINE 20% AER SPR 82.5 GM CAN EXT PRN (05:39)
[2021-10-31] MEDS ORDERED: ACETAMINOPHEN 325 MG TAB PO PRN (05:39)
--- NOTE | 2021-10-31 06:54 | Anesthesia Procedure Note ---
Date of Service October 31, 2021 Anesthesia Post Epidural Note Vital Signs Vital Signs: Temp Pulse Resp BP Pulse Ox 36.7 C 58 L 16 139/65 99 10/31/21 05:30 10/31/21 06:44 10/31/21 06:30 10/31/21 06:44 10/31/21 05:29 Pain Intensity Abdomen: Pain Intensity: 0 Notes Mental Status: alert / awake / arousable and participated in evaluation Nausea / Vomiting: adequately controlled Pain: adequately controlled Airway Patency, RR, SpO2: stable & adequate BP & HR: stable & adequate Hydration State: stable & adequate Neuraxial Anesthesia: was administered and sensory block is resolving Anesthetic Complications: no major complications apparent and Pt Satisfied with anesthetic care Epidural: Removed without complications and With tip intact
[2021-10-31] MEDS: IBUPROFEN 600 MG TAB PO PRN ×4 (07:57→23:12)
[2021-10-31] MEDS: DOCUSATE SODIUM 100 MG CAP PO SCH ×3 (07:57→23:12)
[2021-10-31] MEDS: PRENATAL VITAMIN 1 TAB PO SCH (07:57)
[2021-11-01] MEDS: IBUPROFEN 600 MG TAB PO PRN (03:40)
[2021-11-01 06:46] LABS: Hematocrit (blood only) 31.8 % (34.1-44.9); Mean Corpuscular Hemoglobin 25.1 pg (25.0-34.0); Mean Corpuscular Hgb Conc 31.4 g/dL (32.0-36.0); Mean Corpuscular Volume 79.9 fL (80.0-100.0); Mean Platelet Volume 9.8 fL (9.4-12.3); Platelet Count 225 K/uL (130-400); RDW Coefficient of Variation 15.8 % (11.5-14.5); RDW Standard Deviation 45.5 fL (36.4-46.3); Red Blood Count 3.98 M/uL (3.93-5.22); White Blood Count 7.38 K/ul (4.8-10.8)
--- NOTE | 2021-11-01 06:52 | Obstetrical Progress Note ---
Date of Service November 01, 2021 Assessment & Plan (1) Normal spontaneous vaginal delivery: (2) Obesity affecting , antepartum: Plan - Overall, feeling well and eating well today without difficulty - breast feeding going well without concern - Urinating and stooling appropriately - Ambulating well around room - Pain controlled w/ Ibuprofen - Routine PP care progressing well - Anticipate discharge today Admission and Anticipated Discharge Date Admission Date: October 30, 2021 Supervising Physician Co-Signing Physician Notes Resident Physician Supervision Note: I was present with Dr. Dr. Pena during the history and exam. I discussed the case with the resident and agree with the findings and plan as documented in the note. Any exceptions or clarifications are listed here: [None] Documented By: Brooklyn Stock MD, FACOG Subjective Today 11/01: Patient is a 31 y/o female who is PPD #1 following delivery at 39w1d. Patient notes that she is feeling well and wants to go home today. - Ambulation - around room without difficulty - Voiding/Fernandez - independently without dysuria - Gas/Stool - passing gas and moving bowels w/o concern - Diet - regular diet, no nausea or emesis - Lochia - diminishing, light amount - Feeding Type - breast feeding/pumping - Pain Level - 2/10 controlled with Ibuprofen PRN Review of Systems - Denies fever, chills, sweats - Denies shortness of breath, difficulty breathing, chest pain, palpitations, chest pressure. - Denies breast pain. - Denies dysuria. - Denies headache or changes in vision. Physical Exam Physical Exam: General: Alert, oriented. No acute distress. Cardiac: RRR, normal S1/S2, no murmurs/rubs/gallops. Respiratory: Non-labored, CTAB, no wheezes/rales/rhonchi. Symmetric chest rise. Abdomen: Soft, nontender, nondistended. Bowel sounds present. Uterus: Uterine fundus firm, palpable 2 cm below umbilicus. Lower Extremities: No lower extremity edema or swelling. No deep calf pain. Sam's negative bilaterally. Results & Data ([facility]) Vital Signs (Past 12 Hours) Vital Signs Temp Pulse Resp BP Pulse Ox O2 Del Method 11/01/21 03:21 36.9 C 65 18 112/77 97 Room Air 10/31/21 23:10 Room Air 10/31/21 22:57 36.9 C 71 18 109/70 99 Room Air 10/31/21 21:15 36.6 C 78 18 123/70 97 Room Air Resident Activity Tracking Resident Involvement: Resident Care Provided Care Provided: OB Delivery
[2021-11-01] MEDS: PRENATAL VITAMIN 1 TAB PO SCH (08:36)
[2021-11-01] MEDS: DOCUSATE SODIUM 100 MG CAP PO SCH (08:36)
== END 2021-11-01 10:55 | disposition home or self-care (01) | DRG 807 ==
LOC: OPB 18:52 → 4S1 18:55 → 4E2 10-31 08:11